=== PATIENT | male | born 1950 ===

== ENCOUNTER 2017-08-19 09:14 | Day surgery (SDC) | payer OTHER ==
[2017-08-16 09:19] VITALS: BMI 31.9
[2017-08-19] MEDS ORDERED: PROMETHAZINE HCL 25 MG/1 ML VIAL IVPB PRN (11:49)
[2017-08-19] MEDS ORDERED: ONDANSETRON 4 MG/2 ML VIAL IVPUSH PRN (11:49)
[2017-08-19] MEDS ORDERED: LACTATED RINGERS SOLUTION 1,000 ML IV SCH (12:00)
[2017-08-19] MEDS ORDERED: MIDAZOLAM HCL 2 MG/2 ML SINGLE DOSE VIAL ONE ×2 (12:02→12:45)
[2017-08-19] MEDS ORDERED: ceFAZolin SODIUM 1 GM VIAL ONE (12:21)
[2017-08-19] MEDS ORDERED: SODIUM CHLORIDE 0.9% P/F 10 ML VIAL IJ ONE (12:21)
[2017-08-19] MEDS ORDERED: ceFAZolin SODIUM 1 GM VIAL IVPB ONE (12:30)
[2017-08-19 14:42] VITALS: TEMP 97.8
[2017-08-19 17:54] VITALS: BP 144/70; PULSE 65
--- NOTE | 2017-08-19 18:27 | HP ---
DATE OF ADMISSION: 08/19/2017 The patient is a 67-year-old male with history prostatism, including frequency, urgency, nocturia, and feeling of incomplete bladder emptying. He has been on multiple alpha blockers without any help. His past residual urine was greater than 140 mL. Presently the patient is on lisinopril for high blood pressure, Flomax, and Proscar for his prostate. He takes a PPI for gastroesophageal reflux disease. He also takes nortriptyline at bedtime for anxiety. The patient has undergone a left orchiectomy and a left varicocele in the past. He does have high blood pressure. Denies diabetes. Physical examination revealed a well-developed adult male. Abdomen is soft. Scrotum revealed a left empty scrotum, phallus is normal, meatus is adequate. Prostate is 2+ and firm. His PSA was 1.13. BUN was 11 and creatinine 0.8. His extremities revealed full range of motion with no cyanosis, clubbing, or edema. A transrectal ultrasound revealed a 58 g prostate. Patient will undergo a transurethral vaporization of the prostate. All side effects including retrograde ejaculation were explained in detail to the patient and he agrees. Teofilo [id number]
--- NOTE | 2017-08-19 21:33 | OP ---
DATE OF OPERATION: 08/19/2017 PREOPERATIVE DIAGNOSIS: Benign prostatic hypertrophy. POSTOPERATIVE DIAGNOSIS: Benign prostatic hypertrophy. OPERATIVE PROCEDURE: Cystourethroscopy, transurethral vaporization of prostate. ANESTHESIA: General. DESCRIPTION OF PROCEDURE: Under above-stated anesthesia, patient is prepped and draped in the usual sterile manner. He is placed in the dorsal lithotomy position. Cystoscopy revealed trilobar hypertrophy of the prostate with a grade 2 trabeculation. No lesions or calculi were seen. A vaportrode was introduced, and vaporization in the usual fashion was commenced. This was commenced at the 6 o'clock position of the right lateral lobe and went up to the 12 o'clock position. The same thing was done to the left lobe, and lastly, the median lobe was vaporized. Some free chips were evacuated with an [employer] evacuator. No active bleeding was noted. A 22 Zaman was inserted. This was connected to a leg bag. The patient tolerated the procedure. He returned to the recovery room in good condition. Teofilo [id number]
--- NOTE | 2017-08-21 09:56 | PATH ---
Cytology Non-Gynecological Report Patient Name: YAKELIN VALDERRAMA [facility]. Rec. #: [id number] /Age/Gender: 1950 (Age: 67) / M Account: [id number] Location: [facility] SURGICAL Taken: 08/19/2017 Received: 08/19/2017 Reported: 08/21/2017 Physicians: Sally Campbell M.D. Specimen(s) Received URINE VOIDED, FISH SEND OUT Clinical History Hematuria, BPH Final Diagnosis URINE FOR CYTOLOGY: SATISFACTORY FOR EVALUATION. NEGATIVE FOR HIGH GRADE UROTHELIAL CARCINOMA. UROTHELIAL FRAGMENTS PRESENT. SCATTERED UROTHELIAL CELLS, SQUAMOUS EPITHELIAL CELLS PRESENT. RED BLOOD CELLS PRESENT. UROTHELIAL FRAGMENTS PRESENT. SEE COMMENT. Comment: Urothelial fragments are suggestive of prior instrumentation, lithiasis, or a low grade papillary neoplasm. Suggest clinical/radiologic correlation. Urine FISH studies pending. Findings will be reported as an addendum. Concurrent material is noted ([id number]). Electronically Signed Zamzam Perez M.D. Gross Description Approximately 20 cc of yellow fluid received fresh. Two cytofunnels prepared. Material forwarded to [facility] for ancillary testing.
--- NOTE | 2017-08-21 14:55 | PATH ---
Surgical Pathology Report Patient Name: YAKELIN VALDERRAMA Med. Rec. #: [id number] /Age/Gender: 1950 (Age: 67) / M Account: [id number] Location: [facility] SURGICAL Taken: 08/19/2017 Received: 08/20/2017 Reported: 08/21/2017 Physicians: Sally Campbell M.D. Specimen(s) Received PROSTATE CHIPS Clinical History BPH Final Diagnosis PROSTATE, SHAVINGS, TRANSURETHRAL RESECTION OF PROSTATE/VAPORIZATION: BENIGN PROSTATIC TISSUE WITH STROMAL HYPERPLASIA. Comment: See concurrent cytology ([id number]). Electronically Signed Zamzam Perez M.D. Gross Description Received in formalin labeled "prostate shavings," is a 1 g, 2.0 x 1.6 x 0.3 cm aggregate of boothe soft tissue fragments. The formalin is filtered and the specimen is entirely submitted in one cassette. /08/20/2017 saudi/08/20/2017
== END 2017-08-19 17:56 | disposition home or self-care (01) ==
LOC: JASU-SURG 09:14
PROVIDERS: ATTEND Urology
PROC: 0VT08ZZ Resection of Prostate, Via Natural or Artificial Opening Endoscopic (ICD-10-PCS; principal; 2017-08-19 11:00)
DX: N40.0 Benign prostatic hyperplasia without lower urinary tract symptoms (principal)
CPT/HCPCS: 87086; 88108; 88307-TC; 94760